=== PATIENT | female | born 1970 | race Caucasian/White ===

== ENCOUNTER 2022-02-07 17:59 | Emergency (ER) | payer OTHER ==
[~2022-02-07] VITALS: Ht 157.5 cm; Wt 70.3 kg
[2022-02-07] MEDS ORDERED: GLIP5 PO (18:31)
[2022-02-07] MEDS ORDERED: EASY TOUCH ID (18:31)
== END 2022-02-07 18:58 | disposition home or self-care (01) ==
LOC: ER 17:59
DX: Z76.0 Encounter for issue of repeat prescription (principal); Z88.0 Allergy status to penicillin; E11.9 Type 2 diabetes mellitus without complications
CPT/HCPCS: 82947; 99281; A9270

== ENCOUNTER → 2023-10-15 | Outpatient (CLI) | payer OTHER ==
[~2023-10-15] MED LIST: EASY TOUCH ID; GLIP5 PO; HYDACE10B PO
[2023-10-15 19:55] LABS: BASOPHILS ABSOLUTE AUTO 0.02 K/mm3 (0.00-0.23); BASOPHILS PERCENT AUTO 1 % (0-2); EOSINOPHILS ABSOLUTE AUTO 0.07 K/mm3 (0.00-0.68); EOSINOPHILS PERCENT AUTO 2 % (0-6); Hematocrit 37.3 % (33.0-51.0); Hemoglobin 12.9 g/dL (11.5-16.0); IMMATURE GRAN ABSOLUTE AUTO 0.01 K/mm3 (0.00-0.10); IMMATURE GRAN PERCENT AUTO 0 % (0-1); LYMPHOCYTES ABSOLUTE AUTO 0.77 K/mm3 (0.84-5.20); LYMPHOCYTES PERCENT AUTO 20 % (21-46); MONOCYTES ABSOLUTE AUTO 0.27 K/mm3 (0.16-1.47); MONOCYTES PERCENT AUTO 7 % (4-13); Mean Corpuscular HGB 28.9 pg (26.0-34.0); Mean Corpuscular HGB Conc 34.6 g/dL (31.5-36.5); Mean Corpuscular Volume 83 fL (80-100); NEUTROPHILS ABSOLUTE AUTO 2.74 K/mm3 (1.96-9.15); NEUTROPHILS PERCENT AUTO 71 % (41-73); Platelet Count 60 K/mm3 (150-400); RDW Coefficient Variation 13.5 % (11.7-14.2); RDW Standard Deviation 41.5 fL (35.1-46.3); Red Blood Cell Count 4.47 M/mm3 (3.80-5.20); White Blood Cell Count 3.88 K/mm3 (4.00-11.30)
[2023-10-15 20:01] LABS: Creatinine, Blood 0.54 mg/dL (0.40-1.00); Potassium, Blood 3.9 mmol/L (3.5-5.5)
[2023-10-18 12:49] LABS: HEPATITIS C AB CIA INTERP High Pos (Negative); HEPATITIS C ANTIBODY CIA INDEX >11.00 IV
[2023-10-19 01:05] LABS: HCV QNT BY NAAT (LOG IU/ML) 5.45; HCV QNT BY NAAT INTERP Detected (Not Detected)
== END | disposition home or self-care (01) ==
LOC: LAB EV 18:48 → LAB SHORT 18:48
PROVIDERS: Nurse Practitioner Family
DX: C22.9 Malignant neoplasm of liver, not specified as primary or secondary (principal); E11.40 Type 2 diabetes mellitus with diabetic neuropathy, unspecified; K74.60 Unspecified cirrhosis of liver
CPT/HCPCS: 82565; 83036; 84132; 84295; 84450; 84460; 85025; 86803; 87522

== ENCOUNTER 2024-02-04 15:47 | Emergency (ER) | payer OTHER ==
[~2024-02-04] VITALS: Ht 157.5 cm; Wt 68.5 kg
[2024-02-04 20:32] VITALS: BP 145/80
== END 2024-02-04 21:05 | disposition home or self-care (01) ==
LOC: ER 15:47
DX: E11.65 Type 2 diabetes mellitus with hyperglycemia (principal); Z79.84 Long term (current) use of oral hypoglycemic drugs; Z88.0 Allergy status to penicillin; Z88.1 Allergy status to other antibiotic agents

== ENCOUNTER → 2024-06-17 | Outpatient (CLI) | payer OTHER ==
[~2024-06-17] MED LIST changes: +ALDACTONE100 MG PO; +FUROSEMIDE40 MG PO; +INSULIN GL100 UNIT/2 SQ; +PROP10 PO
[2024-06-17 19:10] LABS: BASOPHILS ABSOLUTE AUTO 0.02 K/mm3 (0.00-0.23); BASOPHILS PERCENT AUTO 0 % (0-2); EOSINOPHILS ABSOLUTE AUTO 0.08 K/mm3 (0.00-0.68); EOSINOPHILS PERCENT AUTO 2 % (0-6); Hematocrit 39.5 % (33.0-51.0); Hemoglobin 13.4 g/dL (11.5-16.0); IMMATURE GRAN ABSOLUTE AUTO 0.01 K/mm3 (0.00-0.10); IMMATURE GRAN PERCENT AUTO 0 % (0-1); LYMPHOCYTES ABSOLUTE AUTO 0.41 K/mm3 (0.84-5.20); LYMPHOCYTES PERCENT AUTO 8 % (21-46); MONOCYTES ABSOLUTE AUTO 0.45 K/mm3 (0.16-1.47); MONOCYTES PERCENT AUTO 9 % (4-13); Mean Corpuscular HGB 30.6 pg (26.0-34.0); Mean Corpuscular HGB Conc 33.9 g/dL (31.5-36.5); Mean Corpuscular Volume 90 fL (80-100); Mean Platelet Volume 11.7 fL (9.1-12.4); NEUTROPHILS ABSOLUTE AUTO 3.93 K/mm3 (1.96-9.15); NEUTROPHILS PERCENT AUTO 80 % (41-73); Platelet Count 64 K/mm3 (150-400); RDW Coefficient Variation 14.8 % (11.7-14.2); RDW Standard Deviation 49.4 fL (35.1-46.3); Red Blood Cell Count 4.38 M/mm3 (3.80-5.20)
[2024-06-17 21:09] LABS: Alanine Aminotransfer (ALT/SGP 110 U/L (12-78); Albumin, Blood 2.3 g/dL (3.4-5.0); Albumin/Globulin Ratio 0.4 (0.8-1.8); Alk Phos 187 U/L (50-136); Anion Gap 12 mmol/L (3-11); Aspartate Aminotrans (AST/SGOT 111 U/L (12-37); Bilirubin, Total 2.8 mg/dL (0.1-1.0); Blood Urea Nitrogen 23 mg/dL (8-24); Bun/Creatinine Ratio 23.9 (12.0-20.0); CHOL/HDL RATIO 15.2; CO2, Blood 21 mmol/L (21-32); Chloride, Blood 103 mmol/L (98-108); Cholesterol 380 mg/dL (50-200); Creatinine, Blood 0.96 mg/dL (0.40-1.00); Free Thyroxine 0.97 ng/dL (0.70-1.60); Glomerular Filtration Rate 70 (60-); Glucose, Blood 426 mg/dL (70-99); HDL Cholesterol 25 mg/dL (>39); LDL/HDL RATIO Unable to Calculate; Low Density Lipoprotein Chol Unable to Calculate mg/dL (0-110); Potassium, Blood 4.4 mmol/L (3.5-5.5); Sodium, Blood 132 mmol/L (136-145); Total Protein, Blood 8.3 g/dL (6.4-8.2); Triglycerides 474 mg/dL (30-160); Very Low Density Lipoprot Chol Unable to Calculate mg/dL (6-32)
[2024-06-17 21:19] LABS: LDL Direct Measurement 214 mg/dL (0-130)
== END | disposition home or self-care (01) ==
LOC: LAB SHORT 18:25 → LAB 18:25
PROVIDERS: Nurse Practitioner Family
DX: E11.40 Type 2 diabetes mellitus with diabetic neuropathy, unspecified (principal); E78.5 Hyperlipidemia, unspecified; R94.6 Abnormal results of thyroid function studies
CPT/HCPCS: 80053; 80061; 83721; 84439; 84443; 85025

== ENCOUNTER 2024-06-30 13:56 | Emergency (ER) | payer OTHER ==
[~2024-06-30] VITALS: Ht 157.5 cm; Wt 64.9 kg
[2024-06-30 14:05] VITALS: BP 134/83
[2024-06-30] MEDS ORDERED: Furosemide 40 MG Tab PO ONE (16:00)
[2024-06-30] MEDS ORDERED: K-Dur10 MEQ PO (16:03)
[2024-06-30] MEDS ORDERED: Lasix40 MG PO (16:03)
== END 2024-06-30 16:23 | disposition home or self-care (01) ==
LOC: ER 13:56
DX: R60.9 Edema, unspecified (principal); K72.90 Hepatic failure, unspecified without coma; E11.9 Type 2 diabetes mellitus without complications; Z88.0 Allergy status to penicillin; Z88.1 Allergy status to other antibiotic agents; Z79.4 Long term (current) use of insulin; Z79.899 Other long term (current) drug therapy
CPT/HCPCS: 71046; 99284-25; A9270

== ENCOUNTER 2024-07-02 15:17 | Emergency (ER) | payer OTHER ==
[~2024-07-02] VITALS: Ht 157.5 cm; Wt 64.4 kg
[~2024-07-02 15:17] MED LIST changes: +K-Dur10 MEQ PO; +Lasix40 MG PO
[2024-07-02 15:23] VITALS: BP 126/79
[2024-07-02 15:51] LABS: BASOPHILS ABSOLUTE AUTO 0.03 K/mm3 (0.00-0.23); BASOPHILS PERCENT AUTO 1 % (0-2); EOSINOPHILS ABSOLUTE AUTO 0.07 K/mm3 (0.00-0.68); EOSINOPHILS PERCENT AUTO 2 % (0-6); Hematocrit 36.2 % (33.0-51.0); Hemoglobin 12.3 g/dL (11.5-16.0); IMMATURE GRAN ABSOLUTE AUTO 0.01 K/mm3 (0.00-0.10); IMMATURE GRAN PERCENT AUTO 0 % (0-1); LYMPHOCYTES ABSOLUTE AUTO 0.36 K/mm3 (0.84-5.20); LYMPHOCYTES PERCENT AUTO 10 % (21-46); MONOCYTES ABSOLUTE AUTO 0.39 K/mm3 (0.16-1.47); MONOCYTES PERCENT AUTO 11 % (4-13); Mean Corpuscular Volume 91 fL (80-100); Mean Platelet Volume 9.8 fL (9.1-12.4); NEUTROPHILS ABSOLUTE AUTO 2.65 K/mm3 (1.96-9.15); NEUTROPHILS PERCENT AUTO 75 % (41-73); Platelet Count 87 K/mm3 (150-400); RDW Coefficient Variation 15.4 % (11.7-14.2); RDW Standard Deviation 50.9 fL (35.1-46.3); Red Blood Cell Count 3.97 M/mm3 (3.80-5.20); White Blood Cell Count 3.51 K/mm3 (4.00-11.30)
[2024-07-02 16:11] LABS: Albumin, Blood 1.9 g/dL (3.4-5.0); Albumin/Globulin Ratio 0.3 (0.8-1.8); Bilirubin, Total 2.1 mg/dL (0.1-1.0); Bun/Creatinine Ratio 26.4 (12.0-20.0); Calcium, Blood 9.6 mg/dL (8.5-10.1); Creatinine, Blood 0.76 mg/dL (0.40-1.00); Globulin, Blood 5.6 g/dL (2.2-4.0); International Normalized Ratio 1.07; Potassium, Blood 3.7 mmol/L (3.5-5.5); Prothrombin Time Results 11.4 Sec (9.7-11.5); Total Protein, Blood 7.5 g/dL (6.4-8.2)
== END 2024-07-02 21:39 | disposition left against medical advice (07) ==
LOC: ER 15:17
PROVIDERS: Physician Assistant
DX: R10.9 Unspecified abdominal pain (principal); M79.89 Other specified soft tissue disorders; Z53.21 Procedure and treatment not carried out due to patient leaving prior to being seen by health care provider
CPT/HCPCS: 74177; 80053; 85025; 85610; Q9967

== ENCOUNTER 2024-07-13 14:09 | Emergency (ER) | payer OTHER ==
[~2024-07-13] VITALS: Ht 157.5 cm; Wt 63.5 kg
[2024-07-13] MEDS ORDERED: Morphine Sulfate 4 MG/1 ML Injection IV ONE (14:40)
[2024-07-13] MEDS ORDERED: Ondansetron HCl 2 MG / ML 2ML Vial IV ONE (14:40)
[2024-07-13 14:46] LABS: BASOPHILS ABSOLUTE AUTO 0.03 K/mm3 (0.00-0.23); BASOPHILS PERCENT AUTO 0 % (0-2); EOSINOPHILS ABSOLUTE AUTO 0.02 K/mm3 (0.00-0.68); EOSINOPHILS PERCENT AUTO 0 % (0-6); Hematocrit 34.9 % (33.0-51.0); Hemoglobin 11.8 g/dL (11.5-16.0); IMMATURE GRAN ABSOLUTE AUTO 0.04 K/mm3 (0.00-0.10); IMMATURE GRAN PERCENT AUTO 0 % (0-1); LYMPHOCYTES ABSOLUTE AUTO 0.36 K/mm3 (0.84-5.20); LYMPHOCYTES PERCENT AUTO 4 % (21-46); MONOCYTES ABSOLUTE AUTO 0.61 K/mm3 (0.16-1.47); MONOCYTES PERCENT AUTO 7 % (4-13); Mean Corpuscular HGB 30.6 pg (26.0-34.0); Mean Corpuscular HGB Conc 33.8 g/dL (31.5-36.5); Mean Corpuscular Volume 91 fL (80-100); NEUTROPHILS ABSOLUTE AUTO 8.04 K/mm3 (1.96-9.15); NEUTROPHILS PERCENT AUTO 88 % (41-73); Platelet Count 101 K/mm3 (150-400); RDW Coefficient Variation 16.1 % (11.7-14.2); RDW Standard Deviation 53.2 fL (35.1-46.3); Red Blood Cell Count 3.85 M/mm3 (3.80-5.20)
[2024-07-13 14:57] LABS: Albumin, Blood 1.9 g/dL (3.4-5.0); Albumin/Globulin Ratio 0.4 (0.8-1.8); Bilirubin, Total 2.7 mg/dL (0.1-1.0); Bun/Creatinine Ratio 28.7 (12.0-20.0); Calcium, Blood 9.7 mg/dL (8.5-10.1); Creatinine, Blood 0.59 mg/dL (0.40-1.00); Globulin, Blood 5.4 g/dL (2.2-4.0); Potassium, Blood 4.6 mmol/L (3.5-5.5); Total Protein, Blood 7.3 g/dL (6.4-8.2)
[2024-07-13 15:23] LABS: International Normalized Ratio 1.17; Prothrombin Time Results 12.4 Sec (9.7-11.5)
[2024-07-13] MEDS ORDERED: OXYC5 PO (15:39)
[2024-07-13] MEDS ORDERED: Furosemide 10 MG/ML 4ML Vial IV ONE (15:40)
[2024-07-13 18:00] VITALS: BP 130/75
[2024-07-13] MEDS ORDERED: OxyCODONE HCL 5 MG TAB PO ONE (18:40)
[2024-07-13] MEDS ORDERED: RX Prepack 6 Tabs Oxycodone 5mg UD ONE (18:40)
== END 2024-07-13 18:55 | disposition home or self-care (01) ==
LOC: ER 14:09
PROVIDERS: Emergency Medicine
DX: C22.9 Malignant neoplasm of liver, not specified as primary or secondary (principal); R18.0 Malignant ascites; E11.9 Type 2 diabetes mellitus without complications; Z88.0 Allergy status to penicillin; Z88.8 Allergy status to other drugs, medicaments and biological substances; Z79.4 Long term (current) use of insulin; Z79.899 Other long term (current) drug therapy
CPT/HCPCS: 80053; 85025; 85610; 85730; 96374; 96375; 99284-25; A9270; J1940; J2270; J2405

== ENCOUNTER 2024-07-22 07:27 | Emergency (ER) | payer OTHER ==
[~2024-07-22] VITALS: Ht 157.5 cm; Wt 77.1 kg
[~2024-07-22 07:27] MED LIST changes: +OXYC5 PO
[2024-07-22] MEDS ORDERED: Morphine Sulfate 4 MG/1 ML Injection IV ONE (09:00)
[2024-07-22] MEDS ORDERED: Ondansetron HCl 2 MG / ML 2ML Vial IV ONE (09:00)
[2024-07-22 09:15] LABS: BASOPHILS ABSOLUTE AUTO 0.02 K/mm3 (0.00-0.23); BASOPHILS PERCENT AUTO 0 % (0-2); EOSINOPHILS ABSOLUTE AUTO 0.09 K/mm3 (0.00-0.68); EOSINOPHILS PERCENT AUTO 2 % (0-6); Hematocrit 31.6 % (33.0-51.0); Hemoglobin 10.9 g/dL (11.5-16.0); IMMATURE GRAN ABSOLUTE AUTO 0.02 K/mm3 (0.00-0.10); IMMATURE GRAN PERCENT AUTO 0 % (0-1); LYMPHOCYTES ABSOLUTE AUTO 0.34 K/mm3 (0.84-5.20); LYMPHOCYTES PERCENT AUTO 6 % (21-46); MONOCYTES ABSOLUTE AUTO 0.82 K/mm3 (0.16-1.47); MONOCYTES PERCENT AUTO 13 % (4-13); Mean Corpuscular HGB 31.7 pg (26.0-34.0); Mean Corpuscular HGB Conc 34.5 g/dL (31.5-36.5); Mean Corpuscular Volume 92 fL (80-100); Mean Platelet Volume 10.3 fL (9.1-12.4); NEUTROPHILS ABSOLUTE AUTO 4.81 K/mm3 (1.96-9.15); NEUTROPHILS PERCENT AUTO 79 % (41-73); Platelet Count 103 K/mm3 (150-400); RDW Standard Deviation 57.1 fL (35.1-46.3); Red Blood Cell Count 3.44 M/mm3 (3.80-5.20)
[2024-07-22 09:47] LABS: Albumin, Blood 1.8 g/dL (3.4-5.0); Albumin/Globulin Ratio 0.4 (0.8-1.8); Bun/Creatinine Ratio 31.9 (12.0-20.0); Calcium, Blood 9.8 mg/dL (8.5-10.1); Creatinine, Blood 1.16 mg/dL (0.40-1.00); Globulin, Blood 5.1 g/dL (2.2-4.0); Potassium, Blood 4.1 mmol/L (3.5-5.5); Total Protein, Blood 6.9 g/dL (6.4-8.2)
[2024-07-22 11:15] VITALS: BP 133/79
== END 2024-07-22 12:20 | disposition home or self-care (01) ==
LOC: ER 07:27
PROVIDERS: Emergency Medicine
DX: K72.10 Chronic hepatic failure without coma (principal); L03.116 Cellulitis of left lower limb; L03.115 Cellulitis of right lower limb; C22.9 Malignant neoplasm of liver, not specified as primary or secondary; I10 Essential (primary) hypertension; E11.9 Type 2 diabetes mellitus without complications; Z88.1 Allergy status to other antibiotic agents; Z88.0 Allergy status to penicillin; Z79.4 Long term (current) use of insulin; Z79.899 Other long term (current) drug therapy
CPT/HCPCS: 80053; 83690; 85025; 93970; 96374; 96375; 99284-25; J2270; J2405

== ENCOUNTER 2024-07-25 11:57 | Observation (INO) | payer OTHER ==
[~2024-07-25] VITALS: Ht 162.6 cm; Wt 72.6 kg
[2024-07-25] MEDS ORDERED: FentaNYL Citrate 50 MCG/ML 2 ML Injection IV ONE (12:20)
[2024-07-25] MEDS ORDERED: Pantoprazole Sodium 40 MG Injection IV ONE (12:20)
[2024-07-25] MEDS ORDERED: Octreotide Acetate 500 MCG in NS 250 ML IV SCH (12:25)
[2024-07-25] MEDS ORDERED: Ondansetron HCl 2 MG / ML 2ML Vial IV ONE (12:25)
[2024-07-25] MEDS ORDERED: Pantoprazole Sodium 40 MG in NS 50 ML IV SCH (12:25)
[2024-07-25 12:45] LABS: BASOPHILS ABSOLUTE AUTO 0.04 K/mm3 (0.00-0.23); BASOPHILS PERCENT AUTO 0 % (0-2); EOSINOPHILS ABSOLUTE AUTO 0.02 K/mm3 (0.00-0.68); EOSINOPHILS PERCENT AUTO 0 % (0-6); Hematocrit 28.6 % (33.0-51.0); Hemoglobin 9.5 g/dL (11.5-16.0); IMMATURE GRAN ABSOLUTE AUTO 0.21 K/mm3 (0.00-0.10); IMMATURE GRAN PERCENT AUTO 1 % (0-1); LYMPHOCYTES ABSOLUTE AUTO 0.77 K/mm3 (0.84-5.20); LYMPHOCYTES PERCENT AUTO 3 % (21-46); MONOCYTES ABSOLUTE AUTO 1.78 K/mm3 (0.16-1.47); MONOCYTES PERCENT AUTO 7 % (4-13); Mean Corpuscular HGB 32.3 pg (26.0-34.0); Mean Corpuscular HGB Conc 33.2 g/dL (31.5-36.5); Mean Corpuscular Volume 97 fL (80-100); Mean Platelet Volume 10.5 fL (9.1-12.4); NEUTROPHILS ABSOLUTE AUTO 23.67 K/mm3 (1.96-9.15); NEUTROPHILS PERCENT AUTO 89 % (41-73); NRBC ABSOLUTE 0.02 K/mm3 (0.00-0.02); NRBC Auto 0.1 /100 WBC (0.0-0.2); Platelet Count 140 K/mm3 (150-400); RDW Coefficient Variation 17.8 % (11.7-14.2); RDW Standard Deviation 61.4 fL (35.1-46.3); Red Blood Cell Count 2.94 M/mm3 (3.80-5.20); White Blood Cell Count 26.49 K/mm3 (4.00-11.30)
[2024-07-25 13:02] LABS: International Normalized Ratio 1.62; Prothrombin Time Results 16.7 Sec (9.7-11.5)
[2024-07-25 13:04] LABS: Albumin, Blood 1.3 g/dL (3.4-5.0); Albumin/Globulin Ratio 0.3 (0.8-1.8); Bilirubin, Direct 1.6 mg/dL (0.0-0.3); Bilirubin, Indirect 1.5 mg/dL (0.1-0.7); Bilirubin, Total 3.1 mg/dL (0.1-1.0); Bun/Creatinine Ratio 30.2 (12.0-20.0); Calcium, Blood 9.5 mg/dL (8.5-10.1); Creatinine, Blood 1.16 mg/dL (0.40-1.00); Globulin, Blood 4.5 g/dL (2.2-4.0); Potassium, Blood 5.5 mmol/L (3.5-5.5); Total Protein, Blood 5.8 g/dL (6.4-8.2)
[2024-07-25] MEDS ORDERED: Vasopressin 20 UNITS in NS 100 ML IV SCH (13:25)
[2024-07-25] MEDS ORDERED: Ciprofloxacin 400MG/D5 200ML 200 ML IV ONE (13:30)
[2024-07-25] MEDS ORDERED: LORazepam 2 MG/ML 1ML Injection IV PRN ×2 (14:20→14:55)
[2024-07-25] MEDS ORDERED: Morphine Sulfate 20 MG/1ML 1 ML Oral Syringe SL PRN ×3 (14:25→17:35)
[2024-07-25] MEDS ORDERED: NS 1,000 ML IV SCH (14:30)
[2024-07-25] MEDS ORDERED: Morphine Sulfate 4 MG/1 ML Injection IV PRN (14:50)
[2024-07-25] MEDS ORDERED: Scopolamine Hydrobromide Patch TOP PRN (14:55)
[2024-07-25] MEDS ORDERED: FLU VACC TS2024-25(6MOS UP)/PF 45 MCG/0.5 ML SYRINGE IM SCH (14:55)
[2024-07-25] MEDS ORDERED: Atropine Sulfate 1% Opth Soln 2ML BTL SL PRN (14:55)
[2024-07-25] MEDS ORDERED: Ondansetron HCl 2 MG / ML 2ML Vial IV PRN (14:55)
[2024-07-25] MEDS ORDERED: Haloperidol Lactate Inj. 5 MG/ML Injection IV PRN (14:55)
[2024-07-25 15:45] VITALS: BP 89/42
[2024-07-25] MEDS ORDERED: FentaNYL 25 MCG Patch TOP SCH (17:25)
--- NOTE | 2024-07-25 17:26 | NUR ---
pt unreposive moans with movement. Physicain notified of increased pain. Quilt placed and pt positioned for cofort.
--- NOTE | 2024-07-25 17:29 | NUR ---
ADMIT NOTE- PT ARRIVED FROM ED, GROANING AND CRYING, KNEES DRAWN UP GRUNTING WITH RESPIRATIONS. SHE CRIED OUT IN PAIN WHEN STAFF MOVED HER FROM THE [facility]. UNABLE TO PROVIDE COMFORT MEDS IMEDIATELY. PT IS OBTUNDED, BUT STILL GRUNTING DESPITE 5MG ROXANOL. SPOKE TO DR MCKEON AND RECIEVED A FENTANYL PATCH ORDER 25MCG. WILL PLACE GAYE. PHOTOS TAKEN OF PT WOUNDS.
--- NOTE | 2024-07-25 18:31 | NUR ---
Spriritual Care Request. Pt. is comfort care and mostly not responsive when I visit. Nurse Sole is attending and getting meds ordered and administered. No family are present. A Palliative care quilt had been provdided. Prayers of lucretia and mercy are offer on behalf of the Pt. Nurse verbalized gratitude for the spiritual care visit.
--- NOTE | 2024-07-25 19:20 | NUR ---
SHIFT SUMMARY- MEDICATED PT WITH 5MG ROXANOL. SPOKE TO PHARMACY. PT IS NARCOTIC NAIVE AND CAN NOT HAVE A FENTANYL PATCH PLACED, ALTERNATE MEANS OF TREATING PAIN NEED TO BE ATTEMPTED FIRST. PT MEDICATED WITH ADDITIONAL 5MG ROXANOL THE FIRST DOSE WAS APPARENTLY INEFFECTIVE. SPOKE TO DR MCKEON ABOUT THE OCTREOTIDE DRIP, SHE WOULD LIKE IT TO CONTINUE IF POSSIBLE. PT HAS 2 AC AND 1 HAND IV, ALL ARE POSSITIONAL. PT IS A LITTLE MORE RELAXED AFTER THE SECOND DOSE OF ROXANOL BUT STILL GRUNTS, GROANS AND CRIES WITH MOVEMENT, MAYBE A SMALL DOSE OF ATIVAN WITH THE NEXT DOSE OF ROXANOL WOULD BENIFIT THE PT. IT COULD HELP IF SHE IS FEELING NAUSEA WELL. NIGHT RN AWARE AND WILL MEDICATE NEEDED. PT NOT REPOSITIONED AT THE 2 HOUR MARCO A SHE WAS IN TOO MUCH PAIN, SHE WAS PLACED IN CLEAN ATTENDS WITH CLEAN SHEETS AND PILLOWS POSITIONED FOR COMFORT UPON ARRIVAL.
--- NOTE | 2024-07-25 20:45 | NUR ---
PT IS COMFORT CARE AND IS VERY UNCOMFORTABLE WHEN YOU TRY TO TURN HER TO CHANGE HER BRIEF. CALLED STEPHON AND HE GAVE A ORDER TO PUT IN A VALENCIA CATHETER FOR COMFORT CARE
--- NOTE | 2024-07-25 22:44 | NUR ---
PT HAVING LABORED BREATHING AND AIR HUNGER GAVE HER A DOSE OF ROXANOL. ATTEMPTED TO CALL PTS SON BIRD TO INFORM HIM OF HIS MOMS CONDITION WITH NO ANSWER. MESSAGE WAS LEFT FOR HIM TO CONTACT THE HOSPITAL.
--- NOTE | 2024-07-25 23:09 | NUR ---
WENT IN TO PTS ROOM AT 2300 AND SHE HAD NO HEART RATE RESPIRATIONS OR BP. HAD A SECOND NURSE PAIGE OKEEFE LVN GO IN WITH ME AND TWO NURSES PROUNCED HER AT 2300. ATTEMPTED TO CALL PTS SON BIRD TO INFORM HIM BUT HE DIDNT ANSWER. CALLED STEPHON SAWYER AND INFORMED HIM OF PTS . CHARGE NURSE WAS INFORMED OF PTS . WILL CONTINUE TO TRY TO GET AHOLD OF PTS SOB BIRD.
--- NOTE | 2024-07-26 02:58 | NUR ---
Mortuary arrived at 0242 to transport body to the mortuary. Several attempts were made to contact her son but I was unable to contact him. All belongings were sent with the body.
== END 2024-07-25 23:00 ==
LOC: ER 11:57 → MEDS 11:58 → ER 16:48 → MEDS 17:15
PROVIDERS: Student in an Organized Health Care Education/Training Program; ADMIT Internal Medicine
DX: K72.10 Chronic hepatic failure without coma (principal); I85.10 Secondary esophageal varices without bleeding; K76.82 Hepatic encephalopathy; C22.9 Malignant neoplasm of liver, not specified as primary or secondary; E86.0 Dehydration; I95.9 Hypotension, unspecified; D62 Acute posthemorrhagic anemia; E11.9 Type 2 diabetes mellitus without complications; Z66 Do not resuscitate; Z79.891 Long term (current) use of opiate analgesic; Z79.4 Long term (current) use of insulin; Z79.899 Other long term (current) drug therapy; Z88.0 Allergy status to penicillin; Z88.1 Allergy status to other antibiotic agents
CPT/HCPCS: 80048; 80076; 82140; 85025; 85610; 86850; 86900; 86901; 96365; 96366; 96368; 96375; 96376; 99285-25; A9270; G0378; J0744; J2270; J2405; J2470; J3010